=== PATIENT | male | born 1980 | race American Indian/Alaskan Native ===

== ENCOUNTER 2021-04-22 14:12 | Emergency (ER) | payer OTHER ==
--- NOTE | 2021-04-22 16:21 | XRay Report ---
CHEST 2 VIEWS INDICATION / CLINICAL INFORMATION: sob. COMPARISON: None available. FINDINGS: SUPPORT DEVICES: None. HEART / MEDIASTINUM: No significant abnormality. LUNGS / PLEURA: No significant pulmonary or pleural abnormality. No pneumothorax. ADDITIONAL FINDINGS: No significant additional findings. IMPRESSION: 1. No acute findings. Signer Name: Martín Patten MD Signed: 04/22/2021 4:16 PM Workstation Name: [id number]
[2021-04-22] MEDS ORDERED: ALBUTEROL 2.5 MG/3 ML NEBU IH ONE (16:26)
[2021-04-22] MEDS ORDERED: predniSONE 20 MG TAB PO ONE (16:27)
--- NOTE | 2021-04-22 16:27 | Emergency Department Report ---
Minor Respiratory - HPI Chief Complaint: Dyspnea/Respdistress Stated Complaint: DIFF BREATHING Time Seen by Provider: 04/22/21 16:26 Duration: Today Pain Location: Chest Severity: mild Minor Respiratory: Yes Able to Tolerate Fluids, Yes Shortness of Breath, No Rhinorrhea, No Sore Throat, No Ear Pain, No Cough, No Sick Contacts, No Hemoptysis, No Chest Pain, No Fever Other History: Patient is a pleasant 40-year-old -[place]one[place] male that comes to the ER today with wheezing. He was working at [employer] and inhaled some diesel flu and that made him wheeze and he got short of breath. On arrival he is not hypoxic, not tachycardic and not hypotensive. In fact his symptoms are gone on arrival to the ER. 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 He follows with a primary care to be sure that this does not recur. He was never really given a reason why he form these clots. Patient's only known risk factor is that of obesity. Patient does have a history of asthma. It is hot in [place] and he was exposed to diesel fuel today. He is mildly wheezing bilaterally in the bases on exam. He has a raspy cough. ED Review of Systems ROS: Stated complaint: DIFF BREATHING Other details as noted in HPI Comment: All other systems reviewed and negative ED Past Medical Hx - Past Medical History Previous Medical History?: Yes Hx Asthma: Yes Additional medical history: DVT, PE; obese - Surgical History Past Surgical History?: Yes Additional Surgical History: knee surgery - Family History Family history: no significant - Social History Smoking Status: Former Smoker Substance Use Type: None - Medications Home Medications: Home Medications Medication Instructions Recorded Confirmed Last Taken Type Albuterol Mdi (or & Nicu Only) 2 puff IH QID PRN #1 inhalation 04/22/21 Unknown Rx [ProAir HFA Inhaler] Cetirizine HCl [ZyrTEC] 10 mg PO DAILY #30 capsule 04/22/21 Unknown Rx Fluticasone [Flonase] 1 spray NS QDAY #1 bottle 04/22/21 Unknown Rx predniSONE [Deltasone] 20 mg PO DAILY #5 tablet 04/22/21 Unknown Rx Minor Respiratory Exam - Exam General: Vital signs noted. No distress. Alert and acting appropriately. HEENT: Yes Moist Mucous Membranes, No Pharyngeal Erythema, No Pharyngeal Exudates, No Rhinorrhea, No Conjuctival Injection, No Frontal Tenderness, No Maxillary Tenderness Ear: Neither TM Bulge, Neither TM Erythema, Neither EAC Pain, Neither EAC Discharge Neck: Yes Supple, No Adenopathy Lungs: Yes Good Air Exchange, Yes Wheezes, No Ronchi, No Stridor, No Cough, No Labored Respirations, No Retractions, No Use of Accessory Muscles, No Other Abnormal Lung Sounds Heart: Yes Regular, No Murmur Abdomen: Yes Normal Bowel Sounds, No Tenderness, No Peritoneal Signs Skin: No Rash, No Edema Neurologic: Alert and oriented, no deficits. Musculoskeletal: Unremarkable. ED Course Vital Signs 04/22/21 14:26 Temperature 98.9 F Pulse Rate 72 Respiratory 18 Rate Blood Pressure 136/82 [Right] O2 Sat by Pulse 98 Oximetry ED Medical Decision Making - Radiology Data Radiology results: report reviewed, image reviewed nap - Medical Decision Making Given lack of hypoxia, tachycardia, hypotension, chest pain, worsening shortness of breath my indices of suspicion for PE is very low. Patient is wheezing was working around diesel fuel in the heat. On arrival to [facility] was given a DuoNeb and prednisone for his asthma. He improved with that. In fact patient was nearly symptom-free by the time he got to the emergency room. He did not take anything prior to arrival. Patient is being discharged home with discharge plan of care including PCP follow-up. He verbalizes an understanding of the need to be seen on Sunday by his PCP for reevaluation given his history. He also understands that he needs to come back to the ER if he has pleuritic type chest pain, progressive shortness of breath or other symptoms that he had when he had his prior DVT PE. Patient is ambulatory nontoxic [id number] on exam Vital Signs 04/22/21 14:26 Temperature 98.9 F Pulse Rate 72 Respiratory 18 Rate Blood Pressure 136/82 [Right] O2 Sat by Pulse 98 Oximetry - Differential Diagnosis asthma ae Critical care attestation.: If time is entered above; I have spent that time in minutes in the direct care of this critically ill patient, excluding procedure time. ED Disposition Clinical Impression: Asthma with acute exacerbation Disposition: - TO HOME OR SELFCARE Is pt being admited?: No Does the pt Need Aspirin: No Condition: Stable Instructions: Asthma, Adult Additional Instructions: meds as ordered today avoid irritants- like plane fuel follow up with pcp Sunday for recheck given you history Prescriptions: predniSONE [Deltasone] 20 mg PO DAILY #5 tablet Fluticasone [Flonase] 1 spray NS QDAY #1 bottle Albuterol Mdi (or & Nicu Only) [ProAir HFA Inhaler] 2 puff IH QID PRN #1 inhalation PRN Reason: Shortness Of Breath Cetirizine HCl [ZyrTEC] 10 mg PO DAILY #30 capsule Referrals: MANJULA MIRELES MD [Staff Physician] - 3-5 Days Time of Disposition: 16:38
[2021-04-22 18:36] VITALS: BP 150/84
== END 2021-04-22 18:36 | disposition home or self-care (01) ==
LOC: ED 14:12
DX: J45.901 Unspecified asthma with (acute) exacerbation (principal); E66.9 Obesity, unspecified; Z91.013 Allergy to seafood; Z87.891 Personal history of nicotine dependence; Z79.899 Other long term (current) drug therapy; Z98.890 Other specified postprocedural states
CPT/HCPCS: 71046; 94640; 99283; J7512; 94644

== ENCOUNTER 2021-09-27 16:17 | Emergency (ER) | payer OTHER ==
--- NOTE | 2021-09-27 17:51 | XRay Report ---
XR chest routine 2V INDICATION / CLINICAL INFORMATION: chest pain. COMPARISON: 04/22/2021 FINDINGS: SUPPORT DEVICES: None. HEART /PULMONARY VASCULATURE: No significant abnormality. LUNGS / PLEURA: No significant pulmonary or pleural abnormality. No pneumothorax. ADDITIONAL FINDINGS: No significant additional findings. IMPRESSION: 1. No acute findings. Signer Name: Marquise Valentine MD Signed: 09/27/2021 5:47 PM Workstation Name: [id number]
--- NOTE | 2021-09-27 18:57 | Emergency Department Report ---
ED General Adult HPI - General Stated complaint: CHEST PAIN Time Seen by Provider: 09/27/21 17:19 - Related Data Previous Rx's Medication Instructions Recorded Last Taken Type Albuterol Mdi (or & Nicu Only) 2 puff IH QID PRN #1 inhalation 04/22/21 Unknown Rx [ProAir HFA Inhaler] Cetirizine HCl [ZyrTEC] 10 mg PO DAILY #30 capsule 04/22/21 Unknown Rx Fluticasone [Flonase] 1 spray NS QDAY #1 bottle 04/22/21 Unknown Rx predniSONE [Deltasone] 20 mg PO DAILY #5 tablet 04/22/21 Unknown Rx Ketorolac [Toradol] 10 mg PO Q6H PRN #14 tablet 09/27/21 Unknown Rx Allergies Allergy/AdvReac Type Severity Reaction Status Date / Time Fish Containing Products Allergy Unknown Verified 04/06/17 11:02 ED Review of Systems ROS: Stated complaint: CHEST PAIN Other details as noted in HPI Comment: All other systems reviewed and negative ED Past Medical Hx - Past Medical History Hx Asthma: Yes Additional medical history: DVT, PE; obese - Surgical History Additional Surgical History: knee surgery - Social History Smoking Status: Former Smoker Substance Use Type: None - Medications Home Medications: Home Medications Medication Instructions Recorded Confirmed Last Taken Type Albuterol Mdi (or & Nicu Only) 2 puff IH QID PRN #1 inhalation 04/22/21 Unknown Rx [ProAir HFA Inhaler] Cetirizine HCl [ZyrTEC] 10 mg PO DAILY #30 capsule 04/22/21 Unknown Rx Fluticasone [Flonase] 1 spray NS QDAY #1 bottle 04/22/21 Unknown Rx predniSONE [Deltasone] 20 mg PO DAILY #5 tablet 04/22/21 Unknown Rx Ketorolac [Toradol] 10 mg PO Q6H PRN #14 tablet 09/27/21 Unknown Rx ED Physical Exam - General General appearance: alert, in no apparent distress - Head Head exam: Present: atraumatic, normocephalic - Eye Eye exam: Present: normal appearance, PERRL, EOMI Pupils: Present: normal accommodation - ENT ENT exam: Present: normal exam, normal orophraynx, mucous membranes moist, TM's normal bilaterally - Neck Neck exam: Present: normal inspection - Respiratory Respiratory exam: Present: normal lung sounds bilaterally, chest wall tenderness (Chest wall tenderness to the right chest along the sternal border worse with deep breath and range of motion). Absent: respiratory distress, wheezes, rales, rhonchi, accessory muscle use - Cardiovascular Cardiovascular Exam: Present: regular rate, normal rhythm. Absent: systolic murmur, diastolic murmur, rubs, gallop - GI/Abdominal GI/Abdominal exam: Present: soft, normal bowel sounds. Absent: distended, tenderness, hyperactive bowel sounds, hypoactive bowel sounds, organomegaly, mass - Rectal Rectal exam: Present: deferred - Extremities Exam Extremities exam: Present: normal inspection, full ROM, normal capillary refill - Back Exam Back exam: Present: normal inspection. Absent: CVA tenderness (R), CVA tenderness (L) - Neurological Exam Neurological exam: Present: alert, oriented X3 - Psychiatric Psychiatric exam: Present: normal affect, normal mood - Skin Skin exam: Present: warm, dry, intact, normal color. Absent: rash ED Medical Decision Making - EKG Data -: EKG Interpreted by Wy EKG shows normal: sinus rhythm Rate: bradycardia - EKG Data When compared to previous EKG there are: previous EKG unavailable Interpretation: normal EKG 09/27/21 18:55 2140 heart rate 54 - Radiology Data Radiology results: report reviewed [address] [address] XRay Report Signed Patient: DAYAMI WEBB MR#: [id number] : 1980 Acct:[id number] Age/Sex: 41 / M ADM Date: 09/27/21 Loc: ED Attending Dr: Ordering Physician: GUILLERMO CARABALLO Date of Service: 09/27/21 Procedure(s): XR chest routine 2V Accession Number(s): [id number] cc: GUILLERMO CARABALLO Fluoro Time In Minutes: XR chest routine 2V INDICATION / CLINICAL INFORMATION: chest pain. COMPARISON: 04/22/2021 FINDINGS: SUPPORT DEVICES: None. HEART /PULMONARY VASCULATURE: No significant abnormality. LUNGS / PLEURA: No significant pulmonary or pleural abnormality. No pneumothorax. ADDITIONAL FINDINGS: No significant additional findings. IMPRESSION: 1. No acute findings. Signer Name: Chaparrita Boone MD Signed: 09/27/2021 5:47 PM Workstation Name: [id number] Transcribed By: YAN Dictated By: CHAPARRITA BOONE MD Electronically Authenticated By: CHAPARRITA BOONE MD Signed Date/Time: 09/27/211746 DD/ 46 TD/TT: Print Cancel - Medical Decision Making This patient presents with chest pain that is very unlikely angina or acute coronary syndrome. The emergency department evaluation has not identified any cause for suspicion that this chest pain has a cardiac etiology. Based on their history, EKG (which showed no evidence of ischemia or infarction) and imaging, in addition to the patient's physical exam, I see no evidence at this time for a malignant etiology for the patient's chest pain. There is no acute evidence for pulmonary embolus, acute myocardial infarction, pneumothorax, Boerhaeve syndrome, cardiac tamponade, thoracic artery dissection, or any other emergent cardiac, pulmonary or aortic pathology. Given the low pre-test probability for cardiac etiology of chest pain and the absence of any sign of ischemia or infarction, discharge for outpatient follow-up and further evaluation is reasonable. I have explained to the patient that even though a cardiac problem is very unlikely, follow-up and further testing is required to reduce further the already small uncertainty that exists. Other life-threatening diagnoses have b een considered. The patient understands the need to return immediately if their symptoms worsen or they develop any new symptoms, and not to engage in any significant exertional activity until follow-up is obtained. Critical care attestation.: If time is entered above; I have spent that time in minutes in the direct care of this critically ill patient, excluding procedure time. ED Disposition Clinical Impression: Chest pain Disposition: 01 HOME / SELF CARE / HOMELESS Is pt being admited?: No Does the pt Need Aspirin: No Condition: Stable Instructions: Nonspecific Chest Pain, Adult Additional Instructions: You were evaluated emergency department today for chest pain. Your evaluation has shown no medicals conditions requiring emergent intervention at this time, however recommend that you follow-up with your primary care physician or your store stocker soon as possible for further testing as an outpatient. Please schedule an appointment for follow-up with your primary care physician as soon as possible. Return to emergency department if you expands worsening uncontrolled chest pain, shortness of breath, lightheadedness, feeling faint, nausea, vomiting or any other concerning symptoms. Prescriptions: Ketorolac [Toradol] 10 mg PO Q6H PRN #14 tablet PRN Reason: Pain
--- NOTE | 2021-09-28 13:26 | Electrocardiograph Report ---
[facility] Test Date: 2021-09-27 Test Time: 16:21:48 Pat Name: DAYAMI WEBB Department: Room: Gender: M Property And Equipment Clerk: ROMERO : 1980 Requested By: PATY ADAMSON Order Number: [id number] Reading MD: Venkat Gonzalez Measurements Intervals [place] Rate: 54 P: 44 MI: 147 QRS: 8 QRSD: 90 T: 36 QT: 442 QTc: 421 Interpretive Statements Sinus bradycardia Otherwise normal ECG No previous ECG available for comparison Electronically Signed On 09-28-2021 13:26:34 EST by Venkat Gonzalez
== END 2021-09-27 19:12 | disposition home or self-care (01) ==
LOC: ED 16:17
DX: R07.9 Chest pain, unspecified (principal); J45.909 Unspecified asthma, uncomplicated; Z87.891 Personal history of nicotine dependence; Z91.013 Allergy to seafood
CPT/HCPCS: 71046; 93005; 99283